=== PATIENT | female | born 2000 | race Caucasian/White ===

== ENCOUNTER 2021-02-07 17:59 | Emergency (ER) | payer OTHER, MEDICAID, SELFPAY ==
[2021-02-07 18:35] VITALS: BP 148/101; PULSE 81; RESP 16; TEMP 37.1; O2SAT 98; BMI 22.8
--- NOTE | 2021-02-07 19:38 | ED_ITS ---
HPI - Wound/Laceration General Chief Complaint: Wound/Laceration Stated Complaint: wound top of right foot Time Seen by Provider: 02/07/21 19:32 Source: patient Mode of arrival: Ambulatory Limitations: no limitations History of Present Illness HPI narrative: Patient is a 20-year-old female here for evaluation of a puncture wound to the top of her right foot. She states that it occurred earlier today. She dropped a multi tool on her foot which poked her. She states she does need an updated tetanus shot. Her earlier she could not get it to stop bleeding but that seems of improved upon arrival here to the ER. Related Data Previous Rx's Medication Instructions Recorded oseltamivir 75 mg capsule 75 mg PO DAILY #7 cap 12/25/18 Review of Systems Constitutional Constitutional: Reports system reviewed and no additional complaints, except as documented Musculoskeletal Musculoskeletal: Denies tingling Comments: Puncture wound to top of right foot Integumentary/Breasts Comments: Puncture wound to top of right foot Neurologic Neurologic: Denies tingling Hematologic/Lymphatic On Anticoagulants: No Allergic/Immunologic Allergic/Immunologic: Denies urticaria Patient History Medical History Facial abscess Social History lives independently: Yes Exam Initial Vital Signs Initial Vital Signs: Vital Signs Temperature 98.8 F 02/07/21 18:35 Pulse Rate 81 02/07/21 18:35 Respiratory Rate 16 02/07/21 18:35 Blood Pressure 148/101 H 02/07/21 18:35 Pulse Oximetry 98 02/07/21 18:35 Const General: cooperative and comfortable Limitations: mental status not altered [facility] Head: normal to inspection and normocephalic Resp Effort & Inspection: normal respiratory effort Cardio Rate: regular rate Pulses: dorsalis pedis present on the right GI Inspection: non-distended Palpation: soft Skin Other: Patient does have a less than 1/2 cm puncture wound to the dorsum of the right foot. No active bleeding. Extrem General: capillary refill normal Psych Appearance: grossly normal and well kempt Course Orders Ordered: Discontinued Medications Diphtheria/Tetanus/Acell Pertussis (Tet,Diph,Pertuss(Acell),Vac/Pf 0.5 Ml Syringe) 0.5 ml IM .ONCE ONE Stop: 02/07/21 18:43 Last Admin: 02/07/21 19:51 Dose: Not Given Documented by: KATY Diphtheria/Tetanus/Acell Pertussis (Tet,Diph,Pertuss(Acell),Vac/Pf 0.5 Ml Syringe) 0.5 ml IM .ONCE ONE Stop: 02/07/21 19:52 Last Admin: 02/07/21 19:55 Dose: 0.5 ml Documented by: KATY Vital Signs Vital signs: Vital Signs - 8 hr 02/07/21 18:35 02/07/21 20:01 Temperature 98.8 F Pulse Rate 81 90 Respiratory Rate 16 16 Blood Pressure 148/101 H 132/86 Pulse Oximetry 98 99 MDM - Wound/Laceration MDM Narrative Medical decision making narrative: Patient is neurovascularly intact. She has a very small puncture wound of the dorsum of her right foot that is not actively bleeding. Her tetanus was updated. We will hold on antibiotics for now. She was given care instructions and return precautions. She expressed understanding and agreement. Discharge Plan Departure Patient Disposition: Home Clinical Impression: Puncture wound of foot, right Instructions: DI for Puncture Wound Activity Restrictions/Additional Instructions: Your tetanus was updated. You can shower like normal. You can cover the area with antibiotic ointment and a bandage. Do not soak your foot in anything until the wound has healed. Return for any new or worsening symptoms. Prescriptions: No Action oseltamivir 75 mg capsule 75 mg PO DAILY Qty: 7 RF: 0
[2021-02-07] MEDS: TET,DIPH,PERTUSS(ACELL),VAC/PF 0.5 ML SYRINGE IM (19:55)
[2021-02-07 20:01] VITALS: BP 132/86; PULSE 90; RESP 16; O2SAT 99
== END 2021-02-07 20:01 | disposition home or self-care (01) ==
PROVIDERS: Emergency Provider Emergency Medicine
DX: S91.331A Puncture wound without foreign body, right foot, initial encounter (principal); W22.8XXA Striking against or struck by other objects, initial encounter; Z23 Encounter for immunization
CPT/HCPCS: 90471; 99283; 90715

== ENCOUNTER 2021-07-09 01:22 | Emergency (ER) | payer OTHER, MEDICAID, SELFPAY ==
--- NOTE | 2021-07-09 01:28 | ED_ITS ---
HPI - Abdominal Pain General Chief Complaint: Abdominal Pain Stated Complaint: lower rt abdominal pain Time Seen by Provider: 07/09/21 01:27 Source: patient Mode of arrival: Ambulatory Limitations: no limitations History of Present Illness HPI narrative: 20-year-old individualcomes emergency department with complaint of right lower quadrant pain that was fairly sudden onset about 30 minutes ago. Patient states they have had occasionally had symptoms on the right sometimes left. They have a history of ovarian cysts in the past but this is significantly worse than prior. Patientdenies fevers, chills. No cough cold or congestion. Patient states she may have a little bit of pain on their side but majority of pain is in the front. States that the pain started in the front. They denyany nausea or vomiting. They did haveslightly loose bowel movements today. No black or blood. No dysuria, urgency or frequency. No vaginal bleeding or discharge. Patient denies any other medical issues. No prior surg eries. They do have an IUD in place. Tobacco, occasional alcohol. Occasional THC but no other illicit. We are accompanied by of their boyfriend. Related Data Previous Rx's Medication Instructions Recorded oseltamivir 75 mg capsule 75 mg PO DAILY #7 cap 12/25/18 Allergies Allergy/AdvReac Type Severity Reaction Status Date / Time No Known Drug Allergies Allergy Verified 07/09/21 02:15 Review of Systems Review of Systems ROS Unobtainable: All systems reviewed & are unremarkable except as noted in HPI and below Patient History Medical History Facial abscess Social History lives independently: Yes Smoking Status: Never smoker Exam Narrative Exam Narrative: GENERAL: Alert and oriented x three, female in moderate distress. HEENT: Head normocephalic, atraumatic, EOMI, pupils reactive, face symmetric, moist mucous membranes NECK: Supple, full range of motion CARDIOVASCULAR: Regular rate and rhythm without murmurs, rubs or gallops. RESPIRATORY: Breath sounds equal bilaterally, no wheezes rales or rhonchi. ABDOMEN: Soft, positive for right lower quadrant tenderness pain. Normoactive bowel sounds all 4 quadrants. Positive for guarding, no rebound, no rigidity, no mass. Non-distended. : No CVA tenderness bilaterally. EXTREMITIES: Normal range of motion, no clubbing or edema. Neurovascularly intact NEUROLOGICAL: Cranial nerves II through XII grossly intact. Moving all extremities SKIN: Warm, dry, no petechiae, no rashes or lesions. Initial Vital Signs Initial Vital Signs: Vital Signs Temperature 98.6 F 07/09/21 01:31 Pulse Rate 85 07/09/21 01:31 Respiratory Rate 20 07/09/21 01:31 Blood Pressure 135/63 07/09/21 01:31 Pulse Oximetry 100 07/09/21 01:31 Course Orders Ordered: ED Orders 07/09/21 01:38 US pelvic complete Stat 07/09/21 01:50 Complete Blood Count AUTO DIFF Stat Comprehensive Metabolic Panel Stat Lipase Stat Test Serum,Qual Stat Discontinued Medications Sodium Chloride (Normal Saline 0.9%) 1,000 mls @ 1,000 mls/hr IV BOLUS ONE Stop: 07/09/21 02:37 Last Infusion: 07/09/21 03:02 Dose: 0 mls/hr Documented by: Admin: 07/09/21 01:56 Dose: 1,000 mls/hr Documented by: SHANICE Ketorolac Tromethamine (Ketorolac 30 Mg/Ml Vial) 30 mg IV NOW ONE Stop: 07/09/21 01:39 Last Admin: 07/09/21 01:57 Dose: 30 mg Documented by: SHANICE Reevaluation(s) Reevaluation #1: Patient's feels much more comfortable. She states medication w as quite helpful. We reviewed her current labs, ultrasound findings. She does not feel like she needs to urinate defers giving a sample at this time. Discussed that we have not completely ruled out appendicitis but seems much less likely with a complex hemorrhagic cyst on ultrasound on the right. Return precautions were discussed. All questions answered. Vital Signs Vital signs: Vital Signs - 8 hr 07/09/21 01:31 07/09/21 04:18 Temperature 98.6 F Pulse Rate 85 76 Respiratory Rate 20 18 Blood Pressure 135/63 131/61 Pulse Oximetry 100 100 MDM - Abdominal Pain Lab Data Result diagrams: 07/09/21 01:50 07/09/21 01:50 Labs: Lab Results 07/09/21 07/09/21 07/09/21 Range/Units 01:50 01:50 01:50 WBC 8.4 (4.5-11.0) X10^3/uL RBC 4.44 (4.0-5.2) X10^6/uL Hgb 14.2 (12.0-16.0) g/dL Hct 41.9 (36-46) % MCV 94.3 (80-100) fL MCH 31.9 (26-34) PG MCHC 33.9 (30-36) % RDW 12.5 (11.6-14.8) % Plt Count 204 (150-400) X10^3/uL Neut % (Auto) 48.1 L (50-75) % Lymph % (Auto) 46.4 H (25-40) % Clinch % (Auto) 4.8 (3-14) % Eos % (Auto) 0.4 L (2-4) % Baso % (Auto) 0.3 (0-2) % Neut # (Auto) 4000 (6073-0844) /uL Lymph # (Auto) 3900 (2226-6065) /uL Clinch # (Auto) 400 (0-900) /uL Eos # (Auto) 0 (0-450) /uL Baso # (Auto) 0 (0-100) /uL Sodium 140 (137-145) mmol/L Potassium 4.0 (3.4-5.1) mmol/L Chloride 105 (98-107) mmol/L Carbon Dioxide 26 (22-32) mmol/L BUN 11 (7-17) mg/dL Creatinine 0.58 (0.52-1.04) mg/dL Estimated GFR > 60.0 (>60) mL/min BUN/Creatinine Ratio 19.0 (6-22) Glucose 86 (70-100) mg/dL Calcium 9.7 (8.4-10.2) mg/dL Total Bilirubin 0.6 (0.2-1.3) mg/dL AST 24 (14-36) IU/L ALT 13 (<35) IU/L Alkaline Phosphatase 51 (38-126) U/L Total Protein 8.1 (6.3-8.2) g/dL Albumin 4.9 (3.5-5.0) g/dL Globulin 3.2 (1.7-4.1) g/dL Albumin/Globulin Ratio 1.5 (1.0-2.8) Lipase 62 (23-300) U/L Serum , Qual Negative (Negative) Imaging Data US - TERMINAL MANAGER: Radiologist's Impression: prelim-complex cyst on right, small amt of fluid, IUD in place. Appendix not visualized. Complex likely hemorrhagic right ovarian cyst measuring 2.3 cm. Small amount of free fluid, likely physiologic. Appendix not visualized. MDM Narrative Medical decision making narrative: This is a 20-year-old individual with right sudden onset lower quadrant pain in the setting of prior ovarian cysts. Symptoms are somewhat similar but significantly worse than priors. Patient is quite tender on palpation. Abdomen is soft and nondistended without any signs of acute abdomen. Patient was given Toradol, labs were obtained and plan to start with pelvic ultrasound and to evaluate for appendix by ultrasound, also plan to obtain urine to evaluate for possible kidney stones, ectopic although patient does have an IUD. Patient's labs are reassuring. Serum is negative patient has what appears to be a complex ovarian cyst. Discharge Plan Departure Patient Disposition: Home Clinical Impression: Complex cyst of right ovary Instructions: DI for Ovarian Cyst Activity Restrictions/Additional Instructions: Follow-up with your physician for recheck this week your symptoms are not improving. It is recommended you have repeat ultrasound imaging for follow-up of your ovarian cyst. You may take ibuprofen up to 800 mg every 8 hours and/or Tylenol up to a 1000 mg every 8 hours as needed for pain. Your appendix was not clearly visualized today but your cyst is a likely cause of your pain. If you develop fevers, worsening pain, persistent vomiting, black or bloody stoo ls, lightheadedness or passing out or other new or concerning symptoms please return for recheck. Prescriptions: No Action oseltamivir 75 mg capsule 75 mg PO DAILY Qty: 7 RF: 0 Referrals: Liliana Watt MD [Physician] -
[2021-07-09 01:31] VITALS: BP 135/63; PULSE 85; RESP 20; TEMP 37; O2SAT 100
--- NOTE | 2021-07-09 01:38 | DI.US.S_ITS ---
PROCEDURE: US PELVIC COMPLETE INDICATIONS: RLQ PAIN; HX OVARIAN CYSTS TECHNIQUE: Real-time scanning was performed of the pelvic organs, with image documentation. Additional endovaginal scanning was necessary due to incomplete visualization of the adnexal and endometrial structures by transabdominal scanning. COMPARISON: None. FINDINGS: Uterus: Uterus is normal in size at 6.5 x 3.1 x 4.5 cm. The endometrium measures 4.2 mm in combined thickness. IUD is noted in appropriate position. Ovaries: Right ovary measures 4.3 x 2.3 x 2.8 cm. There is a complex focus of echogenicity within the right ovary measuring 2.1 x 2.3 x 2.2 cm. Left ovary measures 2.6 x 1.5 x 2.7 cm. Minimal fluid is noted surrounding the right adnexa. IMPRESSION: 1. Complex right ovarian cyst likely hemorrhagic. The above findings are concordant with preliminary report. Dictated by: Qiana Mosquera M.D. on 07/09/2021 at 9:43 Approved by: Qiana Mosquera M.D. on 07/09/2021 at 9:44
[2021-07-09] MEDS: SODIUM CHLORIDE 0.9% 1,000 ML 1000 ML IV (01:56)
[2021-07-09] MEDS: KETOROLAC 30 MG/ML VIAL IV (01:57)
[2021-07-09 02:11] LABS: Add Manual Diff / Slide Review NO; Basophils Absolute Auto 0 /uL (0-100); Basophils Percent Auto 0.3 % (0-2); Eosinophils Absolute Auto 0 /uL (0-450); Eosinophils Percent Auto 0.4 % (2-4); Hematocrit 41.9 % (36-46); Hemoglobin 14.2 g/dL (12.0-16.0); Lymphocytes Absolute Auto 3900 /uL (1100-4500); Lymphocytes Percent Auto 46.4 % (25-40); Mean Corpuscular HGB Conc 33.9 % (30-36); Mean Corpuscular Hemoglobin 31.9 PG (26-34); Mean Corpuscular Volume 94.3 fL (80-100); Monocytes Absolute Auto 400 /uL (0-900); Monocytes Percent Auto 4.8 % (3-14); Neutrophils Absolute Auto 4000 /uL (1500-7000); Neutrophils Percent Auto 48.1 % (50-75); Platelet Count 204 X10^3/uL (150-400); Red Blood Cell Count 4.44 X10^6/uL (4.0-5.2); Red Cell Distribution Width 12.5 % (11.6-14.8); White Blood Cell Count 8.4 X10^3/uL (4.5-11.0)
[2021-07-09 02:12] LABS: Alanine Aminotransferase 13 IU/L (<35); Albumin 4.9 g/dL (3.5-5.0); Albumin Globulin Ratio 1.5 (1.0-2.8); Alkaline Phosphatase 51 U/L (38-126); Aspartate Aminotransferase 24 IU/L (14-36); Bilirubin Total 0.6 mg/dL (0.2-1.3); Blood Urea Nitrogen 11 mg/dL (7-17); Calcium 9.7 mg/dL (8.4-10.2); Carbon Dioxide 26 mmol/L (22-32); Chloride 105 mmol/L (98-107); Estimated Glomerular Filt Rate > 60.0 mL/min (>60); Globulin 3.2 g/dL (1.7-4.1); Glucose 86 mg/dL (70-100); HEMOLYSIS 50 (0-50); Lipase 62 U/L (23-300); Sodium 140 mmol/L (137-145); Total Protein 8.1 g/dL (6.3-8.2)
[2021-07-09 02:39] LABS: Pregnancy Test Serum,Qual Negative (Negative)
[2021-07-09 04:18] VITALS: BP 131/61; PULSE 76; RESP 18; O2SAT 100
== END 2021-07-09 04:19 | disposition home or self-care (01) ==
PROVIDERS: Emergency Provider Emergency Medicine
DX: N83.201 Unspecified ovarian cyst, right side (principal)
CPT/HCPCS: 36415; 76830; 76856; 80053; 83690; 84703; 85025; 96361; 96374; 99284; J1885

== ENCOUNTER → 2021-11-16 12:58 | Outpatient (CLI) | payer OTHER, MEDICAID, SELFPAY ==
[2021-11-16 14:04] LABS: COVID-19 CEPHEID PCR (VTM/NP) Negative (Negative); Influenza A - CEPHEID Flu A NEGATIVE (NEGATIVE); Influenza B - CEPHEID Flu B NEGATIVE (NEGATIVE)
== END ==
PROVIDERS: Visit Provider Physician Assistant
DX: J02.9 Acute pharyngitis, unspecified (principal); Z20.822 Contact with and (suspected) exposure to COVID-19
CPT/HCPCS: 0240U; 87070; 87077; 87147; 87880

== ENCOUNTER → 2022-03-26 09:50 | Outpatient (CLI) | payer OTHER, MEDICAID, SELFPAY ==
[2022-03-26 10:30] LABS: Add Manual Diff / Slide Review NO; Basophils Absolute Auto 0 /uL (0-100); Basophils Percent Auto 0.3 % (0-2); Eosinophils Absolute Auto 0 /uL (0-450); Eosinophils Percent Auto 0.3 % (2-4); Hematocrit 39.7 % (36-46); Hemoglobin 13.9 g/dL (12.0-16.0); Lymphocytes Absolute Auto 2000 /uL (1100-4500); Lymphocytes Percent Auto 25.8 % (25-40); Mean Corpuscular Hemoglobin 32.3 PG (26-34); Mean Corpuscular Volume 92.3 fL (80-100); Monocytes Absolute Auto 400 /uL (0-900); Monocytes Percent Auto 4.9 % (3-14); Neutrophils Absolute Auto 5200 /uL (1500-7000); Neutrophils Percent Auto 68.7 % (50-75); Platelet Count 212 X10^3/uL (150-400); Red Cell Distribution Width 12.6 % (11.6-14.8); White Blood Cell Count 7.6 X10^3/uL (4.5-11.0)
[2022-03-26 10:49] LABS: Alanine Aminotransferase 13 IU/L (<35); Albumin 4.7 g/dL (3.5-5.0); Albumin Globulin Ratio 1.6 (1.0-2.8); Alkaline Phosphatase 52 U/L (38-126); Aspartate Aminotransferase 22 IU/L (14-36); BUN Creatinine Ratio 13.8 (6-22); Bilirubin Total 0.5 mg/dL (0.2-1.3); Blood Urea Nitrogen 9 mg/dL (7-17); Calcium 9.4 mg/dL (8.4-10.2); Carbon Dioxide 28 mmol/L (22-32); Chloride 106 mmol/L (98-107); Estimated Glomerular Filt Rate > 60 mL/min (>60); Globulin 2.9 g/dL (1.7-4.1); Glucose 92 mg/dL (70-100); HEMOLYSIS < 15 (0-50); Potassium 4.3 mmol/L (3.4-5.1); Sodium 139 mmol/L (137-145); Total Protein 7.6 g/dL (6.3-8.2)
[2022-03-26 11:26] LABS: TSH w/ Reflex to FT4 1.46 uIU/mL (0.47-4.68)
== END ==
PROVIDERS: PCP Pediatrics; Referring Provider Pediatrics; Visit Provider Pediatrics
DX: F32.A Depression, unspecified (principal); F41.9 Anxiety disorder, unspecified; G47.00 Insomnia, unspecified; Z87.898 Personal history of other specified conditions
CPT/HCPCS: 36415; 80053; 84443; 85025

== ENCOUNTER → 2022-10-14 11:55 | Outpatient (CLI) | payer OTHER, MEDICAID, SELFPAY ==
--- NOTE | 2022-10-14 11:57 | DI.US.S_ITS ---
PROCEDURE: US PELVIC COMPLETE INDICATIONS: Pelvic Pain/IUD Position TECHNIQUE: Real-time scanning was performed of the pelvic organs, with image documentation. Additional endovaginal scanning was necessary due to incomplete visualization of the adnexal and endometrial structures by transabdominal scanning. COMPARISON: Located Within [facility], , US PELVIC COMPLETE, 07/09/2021, 2:09. FINDINGS: Patient unable to tolerate transvaginal exam. Uterus: Uterus is anteverted and normal in size at 7.3 x 2.8 x 3.9 cm. The myometrium is homogeneous. The endometrium measures 4 mm combined thickness. Intrauterine device is seen in expected position within the endometrial canal. Ovaries: The right ovary measures 2.4 x 2.0 x 1.6 cm. The left ovary measures 1.7 x 1.4 x 1.5 cm. The ovaries have a normal sonographic appearance. Previously seen right ovarian cyst appears to have resolved. Less than 12 follicles can be seen in each ovary. No adnexal masses are seen. Other: No pathologic free abdominal or pelvic fluid. IMPRESSION: Intrauterine device is seen in expected position. No acute sonographic abnormality in the pelvis. Approved by: Antonio Wei M.D. on 10/14/2022 at 13:39
== END ==
PROVIDERS: PCP Family Medicine; Referring Provider Obstetrics & Gynecology; Visit Provider Obstetrics & Gynecology
DX: R10.2 Pelvic and perineal pain (principal); Z30.431 Encounter for routine checking of intrauterine contraceptive device
CPT/HCPCS: 76856

== ENCOUNTER → 2023-01-21 15:16 | Outpatient (CLI) | payer OTHER, MEDICAID, SELFPAY | PROVIDERS: PCP Family Medicine; Visit Provider Nurse Practitioner Family | DX: J02.9 Acute pharyngitis, unspecified (principal) | CPT/HCPCS: 87070; 87880 ==

== ENCOUNTER 2023-02-10 12:12 | Day surgery (SDC) | payer OTHER, MEDICAID, SELFPAY ==
[2023-02-08 11:49] VITALS: BMI 24.8
[2023-02-10] VITALS (7 sets, daily range): BP systolic 99–123; BP diastolic 47–69; PULSE 58–82; RESP 12–24; TEMP 36.2–36.7; O2SAT 97–100; BMI 23.8
[2023-02-10] MEDS: ACETAMINOPHEN 325 MG TABLET 975 MG PO (13:00)
[2023-02-10] MEDS: LACTATED RINGERS 1,000 ML 42 ML IV (13:01)
[2023-02-10] MEDS: SCOPOLAMINE 1 PATCH TOP (13:01)
--- NOTE | 2023-02-10 13:48 | PM.PREOP ---
Pre-operative Note COVID-19 Criteria for continued procedure: Non-surgical alternatives not available or appropriate per current SOC Interval Note History & Physical reviewed/Exam performed by Physician: Yes Changes to H&P: No
--- NOTE | 2023-02-10 14:29 | SUR.OPER ---
Lithotomy on padded OR bed, head on pillow, arms secured on padded arm boards at <90 degrees abduction. Legs secured in padded yellow fins stirrups.
[2023-02-10] MEDS: BUPIVACAINE 0.5% (PF) 30 ML, EPINEPHrine 0.15 MG INJ (14:34)
--- NOTE | 2023-02-10 15:20 | PM.GYNOP.1 ---
Operative Date/Time/Diagnoses Date of procedure: 02/10/23 Time of procedure: 13:50 Pre-op diagnosis: Chronic pelvic pain Post-op diagnosis: other (DOUGLAS, possible minimal endometriosis) Procedure & Clinicians Procedure: Procedures Operation Date: 02/10/23 13:30 Actual Procedure Side Surgeon luciana SHEPARD Laparoscopy & Fulguration Endometrial implants Antoine Rizo MD Indications: Enedelia is? a 22 yo G0 LMP @ 2 weeks ago who presents with a 3 year history of chronic pelvic pain.? Pain is primarily on the right side and she describes it as stabbing when flares up but is also a constant pressure sensation on the right and occasional discomfort on the left.? Pain is worsened with her menses and over the last year so she started developing deep dyspareunia.? Her periods are somewhat irregular since having a Mirena IUD placed in early 2020.? 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 Recent pelvic ultrasound performed on 10/14/2022 shows: FINDINGS:? ?? Patient unable to tolerate transvaginal exam. ? Uterus:? Uterus is anteverted and normal in size at 7.3 x 2.8 x 3.9 cm. The myometrium is homogeneous. ? The endometrium measures 4 mm combined thickness.? Intrauterine device is seen in expected position within the endometrial canal. ? Ovaries:? The right ovary measures 2.4 x 2.0 x 1.6 cm. The left ovary measures 1.7 x 1.4 x 1.5 cm. The ovaries have a normal sonographic appearance.? Previously seen right ovarian cyst appears to have resolved.? Less than 12 follicles can be seen in each ovary. ?No adnexal masses are seen. ? Other:? No pathologic free abdominal or pelvic fluid. ?? IMPRESSION:? Intrauterine device is seen in expected position.? No acute sonographic abnormality in the pelvis.? 3 months after reinitiating use of continuous contraceptive patch in addition to the Mirena IUD in-situ in order to induce amenorrhea, induction of amenorrhea has been successful however patient's pain is little changed and her dyspareunia continues to be an issue.? In addition she does not like the way the hormones make her feel and she is especially put off by use of estrogen since she is taking initial steps in gender transition.? After an extensive discussion regarding options for further evaluation of his pelvic pain, patient wishes to proceed with diagnostic laparoscopy to rule out presence of endometriosis.? Patient presents today for preoperative evaluation, counseling, and consent. Surgeon: Antoine Rizo Operative Notes Findings: The uterus is mid plane to anteverted, normal size and shape with normal mobility. The anterior cul-de-sac is free of any abnormalities with no scarring or lesions suggestive of endometriosis. Both ovaries are also normal. There is a small clear bleb on the distal tube and for additional clear blebs in the right ovarian fossa, all of which were superficial. The remainder of the posterior cul-de-sac including both ovarian fossae are completely normal without any additional clear blebs or other lesions suggestive of possible endometriosis. The surface of both ovaries is unremarkable with no endometriotic implants noted. The appendix is normal gauge, mobile, and there were no lesions suggestive of endometriosis involving the appendix or the cecum. The remainder of the visible abdominal viscera are normal to laparoscopic inspection. Closure Type: primary Specimen(s): none Estimated blood loss (mL): 5 Blood products transfused: none Procedure in detail: With the patient under satisfactory general anesthesia in the modified dorsal lithotomy position, the perineum, vagina, and abdomen were prepped and draped in the usual manner for laparoscopy. A pre-surgical safety time-out was then taken in accordance with [facility] [place] protocols. The skin of the inferior umbilicus was then infiltrated with 0.5% Marcaine with epinephrine and a 1 cm vertical umbilical incision was made in the umbilicus. Veress needle was then used to insufflate the abdomen with carbon dioxide and once properly insufflated, a 5 mm trocar and sleeve were placed through the umbilical incision. Correct position of the sleeve was then confirmed with the scope and a 2nd and 3rd laparoscopy port was placed in the left and right mid quadrants using a similar technique. Using a 3 puncture technique, the pelvis and abdomen were thoroughly visualized and documented photographically. The areas of clear blebs on the patient's right side were then fulgurated with judicious use of monopolar cautery resulting in their complete desiccation. No intrauterine underlying tissues structures was noted. Ureters were seen to be peristalsing actively on both sides. Reinspection of pelvic contents was performed and again no other additional abnormalities were noted. The pneumoperitoneum was then vented and the laparoscopic ports sleeves removed. The laparoscopic port incisions were then closed with 4-0 Monocryl using inverted interrupted stitches and appropriate dressings applied. The patient was awakened from anesthesia and transferred to the PACU for a period of observation and recovery after having tolerated the procedure well. Complications: none Post-operative Condition: stable Disposition: PACU Plan for aftercare: Routine postoperative care with follow-up planned for 2 weeks postop
== END 2023-02-10 15:51 | disposition home or self-care (01) ==
PROVIDERS: PCP Family Medicine; Referring Provider Obstetrics & Gynecology; Visit Provider Obstetrics & Gynecology
PROC: 0U5B4ZZ Destruction of Endometrium, Percutaneous Endoscopic Approach (ICD-10-PCS; CPT 58662; principal; 2023-02-10 13:30)
DX: R10.2 Pelvic and perineal pain (principal); N94.89 Other specified conditions associated with female genital organs and menstrual cycle
CPT/HCPCS: 58662; J0171; J1100; J1885; J2250; J2405; J2704; J3010; J3490

== ENCOUNTER 2024-05-20 14:53 | Emergency (ER) | payer OTHER, MEDICAID, SELFPAY ==
[2024-05-20 14:56] VITALS: BP 129/76; PULSE 83; RESP 18; TEMP 36.8; O2SAT 100; BMI 28.3
--- NOTE | 2024-05-20 15:00 | ED.EXTPRO ---
HPI - Extremity Problem <Pedro Rowe PA-C - Last Filed: 05/20/24 15:34> General Chief complaint: Extremity Problem,Nontraumatic Stated complaint: swelling rt leg Time Seen by Provider: 05/20/24 15:00 Source: patient Mode of arrival: Wheelchair History of Present Illness HPI Narrative: This is a 23-year-old female presents to the emergency department due to right lower extremity edema. States that she began using HRT therapy 2 days ago and was injecting to her medial thigh. She noticed some swelling to the lateral and anterior distal thigh 2 days ago. Denies any fevers, nausea, vomiting, or any other systemic symptoms. Denies any chest pain or shortness of breath. Related Data Home Medications Medication Instructions Recorded Confirmed levonorgestrel 21 mcg/24 hours (8 See Rx Instructions .Route .COMPLEX 03/26/22 02/24/23 yrs) 52 mg intrauterine device (Mirena) Previous Rx's Medication Instructions Recorded norelgestromin 150 mcg-e.estradiol 1 patch transdermal Q7D #3 ea 10/19/22 35 mcg/24 hr weekly transderm patch Allergies Allergy/AdvReac Type Severity Reaction Status Date / Time No Known Drug Allergies Allergy Verified 05/20/24 14:56 Review of Systems <Pedro Rowe PA-C - Last Filed: 05/20/24 15:34> Review of Systems Narrative: GENERAL: Denies chills, fatigue, malaise, fever, sweats. HEENT: Denies sinus pain, ear pain, sore throat, difficulty swallowing, dizziness. RESPIRATORY: Denies dyspnea, cough, wheezing, hemoptysis, sputum. CARDIOVASCULAR: Denies chest pain, palpitations, orthopnea, edema, GASTROINTESTINAL: Denies nausea, vomiting, abdominal pain, diarrhea, constipation, melena. : Denies dysuria, frequency, incontinence, hematuria, urinary retention. MUSCULOSKELETAL: Reports right lower extremity swelling denies weakness, joint pain, or bony pain SKIN: Denies rash, skin lesions, or other NEUROLOGIC: Denies weakness, headache, numbness, change in speech, confusion, seizures, incoordination. PSYCHIATRIC: No concerning psychosocial issues. 12 point review of systems is negative except for those stated above Patient History <Pedro Rowe PA-C - Last Filed: 05/20/24 15:34> Medical History (Updated 05/20/24 @ 15:33 by Pedro Rowe PA-C) Painful menstrual periods Ovarian cyst History of hallucinations Insomnia Depression Anxiety Facial abscess Family History (Updated 07/04/22 @ 21:55 by Ligia Concepcion) Father Mental health problem Mother Hypertension Mental health problem Brother Mental health problem Brother Substance use Grandfather Alcoholism Social History household members: significant other and family lives independently: Yes Smoking Status: Current every day smoker alcohol intake: current substance use type: marijuana (most days ) Smoking Status: Current every day smoker alcohol intake frequency: a few times a month Substance Use Type: marijuana Exam <Pedro Rowe PA-C - Last Filed: 05/20/24 15:34> Narrative Exam Narrative: GENERAL: Well-developed patient, in mild distress. HEAD: Atraumatic. Normocephalic. EYES: Pupils equal round and reactive. Extraocular motions intact. No scleral icterus. No injection or drainage. ENT: Nose without bleeding, purulent drainage. Throat without erythema, tonsillar hypertrophy or exudate. Airway patent. NECK: Trachea midline. Non tender EXTREMITIES: No edema or joint tenderness. NEURO: AOx3. SKIN: Very small puncture site with no surrounding erythema to the anterior aspect of the right thigh. There was some localized edema with fluctuance at approximately the vastus lateralis area of the right thigh. There was no pain with palpation to the posterior thigh, popliteal area, or calf. There was no edema affecting the right calf well as the medial aspect of the right thigh. Initial Vital Signs Initial Vital Signs: Vital Signs Temperature 98.3 F 05/20/24 14:56 Pulse Rate 83 05/20/24 14:56 Respiratory Rate 18 05/20/24 14:56 Blood Pressure 129/76 05/20/24 14:56 Pulse Oximetry 100 05/20/24 14:56 Oxygen Delivery Method Room Air 05/20/24 14:56 <Adriane Jordan MD - Last Filed: 05/20/24 18:38> Initial Vital Signs Initial Vital Signs: Vital Signs Temperature 98.3 F 05/20/24 14:56 Pulse Rate 83 05/20/24 14:56 Respiratory Rate 18 05/20/24 14:56 Blood Pressure 129/76 05/20/24 14:56 Pulse Oximetry 100 05/20/24 14:56 Oxygen Delivery Method Room Air 05/20/24 14:56 Course <Pedro Rowe PA-C - Last Filed: 05/20/24 15:34> Vital Signs Vital signs: Vital Signs - 8 hr 05/20/24 14:56 Temperature 98.3 F Pulse Rate 83 Respiratory Rate 18 Blood Pressure 129/76 Pulse Oximetry 100 Oxygen Delivery Method Room Air <Adriane Jordan MD - Last Filed: 05/20/24 18:38> Vital Signs Vital signs: Vital Signs - 8 hr 05/20/24 14:56 Temperature 98.3 F Pulse Rate 83 Respiratory Rate 18 Blood Pressure 129/76 Pulse Oximetry 100 Oxygen Delivery Method Room Air MDM - Extremity (Nontraumatic) <Pedro Rowe PA-C - Last Filed: 05/20/24 15:34> MDM Narrative Medical decision making narrative: ED course: This is a 23-year-old female presents to the emergency department due to right thigh edema. On exam there was no significant edema affecting the calf and no tenderness to palpation to the posterior calf, popliteal area, or posterior thigh. She was not reporting any chest pain or shortness of breath. The swollen happened directly after the injection. Patient states that she was moving quite a bit as she was scared of needles when the injection was injected. This may lead to some soft tissue edema as well as fluid buildup the suspect has localized to the lateral aspect of the right thigh. Recommended elevation, warm compresses, ibuprofen and Tylenol as needed for pain. Shared decision-making utilized and no DVT ultrasound ordered. CC: Right thigh swelling Complicating co-morbidities: HRT use Data collected from: Previous notes Medical records reviewed: Patient was last seen in the emergency department 3 years ago due to a complex cyst of the right ovary. Had an IUD at that time. No other pertinent medical history. Differential considered, but not limited to: DVT, hematoma, local reaction Exam documented above, pertinent findings include: Some edema and fluctuance to the lateral aspect of the right thigh, no pain with palpation of the posterior thigh and no significant edema noticed affecting the remainder of the right lower extremity Lab Test results independently reviewed as above. Pertinent findings: None obtained Imaging studies independently reviewed: Not obtained Scores Used: None MIPS Elements: None Consultations: None Treatments: None Re-evaluations: None Discussion: Discussed plan with the patient was comfortable with the plan Diagnosis: Soft tissue injury Disposition: see below, along with detailed discharge instructions that have been reviewed with patient as well as indications for ED re-evaluation and additional outpatient follow up Discharge Plan Departure Patient Disposition: Home Clinical Impression: Soft tissue injury Activity Restrictions/Additional Instructions: Thank you for coming to the [facility] Emergency Department today. As we discussed I do not believe that this is a ?blood clot? that is happening here. Think during your injection you may have irritated the area which caused some fluid buildup and drain to the lateral aspect of your thigh. I recommend elevation, compression, rest, and ibuprofen and Tylenol as needed for pain. Please return to the emergency department if you develop any chest pain, shortness of breath, worsening swelling, or any other concerning signs or symptoms. I hope you feel better soon. Please follow up with your primary care provider within a week if your symptoms continue. If you do not have a primary care provider please contact the [facility] Resource line at [phone]. They will ask some questions about your medical history and help you get set up with a provider in the community. Prescriptions: No Action norelgestromin-ethin.estradiol 150-35 mcg/24 hr patch weekly 1 patch transdermal Q7D Qty: 3 12RF Rx Instructions: apply once weekly. Mirena 20 mcg/24 hours (7 yrs) 52 mg intrauterine device See Rx Instructions .ROUTE .COMPLEX Rx Instructions: implanted IUD Referrals: Betty Banegas DO [Primary Care Provider] - Stand Alone Forms: Patient Portal/API ED Sign-out <Adriane Jordan MD - Last Filed: 05/20/24 18:38> Cosign ED Attending Lisa Attestation: I was immediately available in the department for consultation throughout this patient's visit. Adriane Jordan MD
== END 2024-05-20 15:59 | disposition home or self-care (01) ==
PROVIDERS: Emergency Provider Physician Assistant Medical; PCP Family Medicine
DX: S89.91XA Unspecified injury of right lower leg, initial encounter (principal)
CPT/HCPCS: 99281

== ENCOUNTER 2024-07-09 14:10 | Emergency (ER) | payer OTHER, MEDICAID, SELFPAY ==
[2024-07-09 14:54] VITALS: BP 143/82; PULSE 76; RESP 16; TEMP 36.7; O2SAT 99; BMI 25.6
--- NOTE | 2024-07-09 14:58 | DI.RAD.S_ITS ---
PROCEDURE: XR HAND RT MIN 3V INDICATIONS: injury/pain TECHNIQUE: 3 views of the hand(s) acquired. COMPARISON: None. FINDINGS: Bones: No fractures or dislocations. Carpal bones are normally aligned. No suspicious bony lesions. Soft tissues: No suspicious soft tissue calcifications. IMPRESSION: No visualized acute fracture or dislocation. However, if clinical concern and/or pain persist, short interval imaging followup in 7-10 days is recommended, as occult injury cannot be definitively excluded. Dictated by: Qiana Mosquera M.D. on 07/09/2024 at 16:10 Approved by: Qiana Mosquera M.D. on 07/09/2024 at 16:10
[2024-07-09 15:13] VITALS: PULSE 78
--- NOTE | 2024-07-09 16:21 | ED_ITS ---
<Statement entered by Jose Daniel Barry DO - 07/09/24 17:52> Dr. Barry: I was immediately available in the department for consultation. Documentation has been reviewed. I agree with assessment and plan. HPI - Extremity Injury (Upper) General Chief Complaint: Extremity Injury, Upper Stated Complaint: Fall 1 wk, hand px Time Seen by Provider: 07/09/24 15:16 Source: patient Mode of arrival: Ambulatory History of Present Illness HPI narrative: 23-year-old female presents to the ED with 1 week of right hand pain sustained from a fall. Patient states she was standing up on a chair trying to get her cat, when she slipped and fell, injuring her right hand in the process. Patient states that her pinky finger was stretched and abduction when she fell. Denies numbness, tingling, weakness. Patient states that she has mild pain that has not improved since the injury. Related Data Home Medications Medication Instructions Recorded Confirmed levonorgestrel 21 mcg/24 hr (up to See Rx Instructions .Route .COMPLEX 03/26/22 02/24/23 8 years) 52 mg intrauterine device (Mirena) Previous Rx's Medication Instructions Recorded norelgestromin 150 mcg-e.estradiol 1 patch transdermal Q7D #3 ea 10/19/22 35 mcg/24 hr weekly transderm patch Allergies Allergy/AdvReac Type Severity Reaction Status Date / Time No Known Drug Allergies Allergy Verified 07/09/24 14:57 Review of Systems Constitutional Constitutional: Denies chills, Denies fatigue, Denies fever(s), Denies frequent falls, Denies lethargy and Denies weakness Eyes Eyes: Denies change in vision, Denies eye discharge, Denies irritation and Denies loss of vision ENT Ears, Nose, Mouth, and Throat: Denies change in voice, Denies dizziness, Denies neck pain, Denies sore throat and Denies throat swelling Cardiovascular Cardiovascular: Denies chest pain, Denies irregular heart rhythm, Denies lightheadedness, Denies palpitations, Denies dyspnea, Denies dyspnea on exertion and Denies orthopnea Respiratory Respiratory: Denies cough, Denies dyspnea, Denies dyspnea on exertion and Denies wheezing Gastrointestinal Gastrointestinal: Denies abdominal pain, Denies change in bowel habits, Denies diarrhea, Denies nausea and Denies vomiting Musculoskeletal Musculoskeletal: Denies neck pain and Denies numbness Comments: R hand pain Integumentary/Breasts Skin/Breast: Denies pruritus, Denies erythema, Denies rash and Denies wounds Neurologic Neurologic: Denies behavioral changes, Denies confusion, Denies dizziness, Denies frequent falls, Denies loss of vision, Denies numbness and Denies weakness Psychiatric Psychiatric: Denies anxiety, Denies behavioral changes, Denies confusion, Denies depression, Denies homicidal ideation and Denies suicidal ideation Endocrine Endocrine: Denies fatigue, Denies flushing and Denies palpitations Hematologic/Lymphatic Hematologic/Lymphatic: Denies easy bruising Allergic/Immunologic Allergic/Immunologic: Denies urticaria, Denies throat swelling and Denies wheezing Patient History Medical History Painful menstrual periods Ovarian cyst History of hallucinations Insomnia Depression Anxiety Facial abscess Family History Father Mental health problem Mother Hypertension Mental health problem Brother Mental health problem Brother Substance use Grandfather Alcoholism Social History household members: significant other and family lives independently: Yes Smoking Status: Current every day smoker alcohol intake: current substance use type: marijuana (most days ) Smoking Status: Current every day smoker alcohol intake frequency: a few times a month Substance Use Type: marijuana Exam Narrative Exam Narrative: Const General:?cooperative, healthy appearing and comfortable [facility] Head:?normal to inspection Ears:?hearing grossly normal bilaterally Nose:?external nose normal Face and sinus:?normal facial exam and sinuses nontender Mouth:?oral mucosae normal Throat:?posterior oropharynx normal Eyes General:?appearance normal, both eyes and all related structures Neck Neck:?normal visual inspection and no lymphadenopathy noted Resp Effort & Inspection:?normal respiratory effort Auscultation:?clear to auscultation bilaterally Cardio Rate:?regular rate Rhythm:?regular rhythm Musculoskeletal No erythema, deformities noted on exam. Mild swelling and tenderness noted along the pinky finger and 5th metacarpal. There is full range of motion. Strength and sensation is intact. Neurovascularly intact. Neuro General:?patient alert, patient awake and patient oriented x3 Initial Vital Signs Initial Vital Signs: Vital Signs Temperature 98.0 F 07/09/24 14:54 Pulse Rate 76 07/09/24 14:54 Respiratory Rate 16 07/09/24 14:54 Blood Pressure 143/82 H 07/09/24 14:54 Pulse Oximetry 99 07/09/24 14:54 Oxygen Delivery Method Room Air 07/09/24 14:54 Course Orders Ordered: ED Orders 07/09/24 14:58 XR hand RT min 3V Stat Vital Signs Vital signs: Vital Signs - 8 hr 07/09/24 14:54 07/09/24 15:13 Temperature 98.0 F Pulse Rate 76 Pulse Rate [Right Radial] 78 Respiratory Rate 16 Blood Pressure 143/82 H Pulse Oximetry 99 Oxygen Delivery Method Room Air MDM - Extremity Injury (Upper) MDM Narrative Medical decision making narrative: 23-year-old female presents to the ED with 1 week of right hand pain sustained from a fall. X-ray was obtained to rule out fracture/dislocation. X-ray was without acute findings. Patient has good range of motion and strength and sensation is intact. Patient fitted in a brace for comfort. Recommend Tylenol, ibuprofen. Recommend follow-up with PCP. ED return precautions discussed with patient. Patient verbalized understanding. Medical records reviewed: Yes Discharge Plan Departure Patient Disposition: Home Clinical Impression: Hand sprain Qualifiers: Encounter type: initial encounter Laterality: right Qualified Code(s): S63.91XA - Sprain of unspecified part of right wrist and hand, initial encounter Instructions: DI for Hand Injury Activity Restrictions/Additional Instructions: You were evaluated in the ED today for a hand injury. Your x-ray was normal. It appears that your symptoms are due to a musculoskeletal sprain/strain of your hand. You may use a brace or Martin wrap for comfort and healing. You may also take ibuprofen and Tylenol. Please follow-up with your PCP as soon as possible. Return to the ED if you have worsening symptoms, numbness, tingling, weakness. Prescriptions: No Action norelgestromin-ethin.estradiol 150-35 mcg/24 hr patch weekly 1 patch transdermal Q7D Qty: 3 12RF Rx Instructions: apply once weekly. Mirena 20 mcg/24 hours (7 yrs) 52 mg intrauterine device See Rx Instructions .ROUTE .COMPLEX Rx Instructions: implanted IUD Referrals: Miscellaneous,Doctor[facility] [Primary Care Provider] - Stand Alone Forms: Patient Portal/API
== END 2024-07-09 16:45 | disposition home or self-care (01) ==
PROVIDERS: Emergency Provider Student in an Organized Health Care Education/Training Program
DX: S63.91XA Sprain of unspecified part of right wrist and hand, initial encounter (principal); W01.0XXA Fall on same level from slipping, tripping and stumbling without subsequent striking against object, initial encounter
CPT/HCPCS: 73130; 99283

== ENCOUNTER 2024-09-16 23:36 | Emergency (ER) | payer OTHER, SELFPAY ==
[2024-09-16 23:40] VITALS: BP 123/79; PULSE 84; RESP 18; TEMP 37.1; O2SAT 98; BMI 24.5
[2024-09-17 00:51] VITALS: BP 114/62; PULSE 67; O2SAT 99
--- NOTE | 2024-09-17 02:42 | ED.WOUNDLAC ---
HPI - Wound/Laceration General Chief Complaint: Wound/Laceration Stated Complaint: cut rt foot toe Time Seen by Provider: 09/17/24 02:42 Source: patient Mode of arrival: Wheelchair History of Present Illness HPI narrative: Patient is a healthy 24-year-old female to male transgender presenting to day right 2nd toe laceration. He reports that he accidentally symptoms on an aluminum can lead. It was bleeding quite a bit. Tetanus up-to-date. Bleeding is now well controlled Related Data Home Medications Medication Instructions Recorded Confirmed levonorgestrel 21 mcg/24 hr (up to See Rx Instructions .Route .COMPLEX 03/26/22 02/24/23 8 years) 52 mg intrauterine device (Mirena) Previous Rx's Medication Instructions Recorded norelgestromin 150 mcg-e.estradiol 1 patch transdermal Q7D #3 ea 10/19/22 35 mcg/24 hr weekly transderm patch Allergies Allergy/AdvReac Type Severity Reaction Status Date / Time No Known Drug Allergies Allergy Verified 07/09/24 14:57 Patient History Medical History Painful menstrual periods Ovarian cyst History of hallucinations Insomnia Depression Anxiety Facial abscess Family History Father Mental health problem Mother Hypertension Mental health problem Brother Mental health problem Brother Substance use Grandfather Alcoholism Social History household members: significant other and family lives independently: Yes Smoking Status: Current every day smoker alcohol intake: current substance use type: marijuana (most days ) Smoking Status: Current every day smoker alcohol intake frequency: a few times a month Exam Initial Vital Signs Initial Vital Signs: Vital Signs Temperature 98.7 F 09/16/24 23:40 Pulse Rate 84 09/16/24 23:40 Respiratory Rate 18 09/16/24 23:40 Blood Pressure 123/79 09/16/24 23:40 Pulse Oximetry 98 09/16/24 23:40 Oxygen Delivery Method Room Air 09/16/24 23:40 GENERAL: Well-appearing, well-nourished and in no acute distress. CARDIOVASCULAR: peripheral pulses in tact, cap refill <2 sec RESPIRATORY: No respiratory distress, speaks in full sentences without difficulty [ABDOMEN: Soft, nontender, no guarding or rebound] EXTREMITIES: Normal range of motion, no clubbing or edema. Neurovascularly intact NEUROLOGICAL: Cranial nerves II through XII grossly intact. Normal gait and speech. SKIN: Right foot 2nd toe laceration no nail bed involvement about 1 cm good skin approximation bleeding controlled Course Orders Ordered: ED Orders 09/16/24 23:46 Consult to [employer] - [employer] Training Associate Stat Vital Signs Vital signs: Vital Signs - 8 hr 09/16/24 23:40 09/17/24 00:51 09/17/24 02:53 Temperature 98.7 F Pulse Rate 84 67 57 L Respiratory Rate 18 16 Blood Pressure 123/79 114/62 109/67 Pulse Oximetry 98 99 97 Oxygen Delivery Method Room Air Room Air Room Air MDM - Wound/Laceration MDM Narrative Medical decision making narrative: Patient has toe laceration not requiring sutures. Area is cleaned with caused by myself and Band-Aid placed. Discharge Plan Departure Patient Disposition: Home Clinical Impression: Laceration of second toe of right foot Instructions: DI for Minor Laceration Activity Restrictions/Additional Instructions: *You have been diagnosed with toe laceration *What to do: Keep area clean and dry with soap and water may apply antibiotic ointment 1 to 2 times a day *Continue to take medications as directed Tylenol Motrin as needed for pain *Follow up with your primary care provider in 2-3 days or call [phone] *Return to ER if you should have increasing redness swelling drainage or any new, worsening or concerning symptoms Prescriptions: No Action norelgestromin-ethin.estradiol 150-35 mcg/24 hr patch weekly 1 patch transdermal Q7D Qty: 3 12RF Rx Instructions: apply once weekly. Mirena 20 mcg/24 hours (7 yrs) 52 mg intrauterine device See Rx Instructions .ROUTE .COMPLEX Rx Instructions: implanted IUD Referrals: Miscellaneous,Doctor[facility] [Primary Care Provider] - Stand Alone Forms: Patient Portal/API/Survey
[2024-09-17 02:53] VITALS: BP 109/67; PULSE 57; RESP 16; O2SAT 97
== END 2024-09-17 02:55 | disposition home or self-care (01) ==
PROVIDERS: Emergency Provider Emergency Medicine
DX: S91.114A Laceration without foreign body of right lesser toe(s) without damage to nail, initial encounter (principal); W26.8XXA Contact with other sharp object(s), not elsewhere classified, initial encounter
CPT/HCPCS: 99282